=== PATIENT | female | born 1965 | race American Indian/Alaskan Native ===

== ENCOUNTER 2019-06-14 07:48 | Day surgery (SDC) | payer BC, OTHER ==
[~2019-06-14 07:48] MED LIST: Lactated Ringers 1,000 ML IV SCH; Sodium Chloride 0.9% 10 ML Syringe FLUSH PRN
[2019-06-14] MEDS ORDERED: Lidocaine 2% 5 ML SDV INJECT ONE (07:49)
[2019-06-14] MEDS ORDERED: fentaNYL 100 MCG/2 ML SDV IV ONE (07:49)
[2019-06-14] MEDS ORDERED: Glycopyrrolate 0.2 MG/ML 5 ML MDV IV ONE (07:49)
[2019-06-14] MEDS ORDERED: Rocuronium 50 MG/5 ML Vial IV ONE (07:49)
[2019-06-14] MEDS ORDERED: Propofol 200 MG/20 ML SDV IV ONE (07:49)
[2019-06-14] MEDS ORDERED: Neostigmine Methylsulfate 10 MG/10 ML MDV IVPUSH ONE (07:49)
[2019-06-14] MEDS ORDERED: Dexamethasone 4 MG/ML 5 ML MDV IVPUSH ONE (07:49)
[2019-06-14] MEDS ORDERED: Midazolam 1 MG/ML 2 ML SDV IV ONE (07:49)
[2019-06-14] MEDS ORDERED: Acetaminophen 1,000 MG/100 ML Infusion Bottle IV ONE (07:49)
[2019-06-14] MEDS ORDERED: Ciprofloxacin in D5W 400 MG in Premix Bag 1 BAG IV ONE ×2 (07:58)
[2019-06-14] MEDS ORDERED: cefOXitin 1 GM in Premix Bag 1 BAG IV ONE (09:00)
[2019-06-14] MEDS ORDERED: Clindamycin in 0.9 % Sod Chlor 900 MG/50 ML BAG IV ONE (09:00)
[2019-06-14] MEDS ORDERED: Lidocaine 1% with EPINEPHrine 1:100,000 20 ML MDV INJECT ONE (09:59)
[2019-06-14] MEDS ORDERED: Bupivacaine 0.5% 30 ML SDV INJECT ONE (09:59)
[2019-06-14] MEDS ORDERED: Acetaminophen/HYDROcodone 325-5 MG Tab PO PRN (10:35)
--- NOTE | 2019-06-14 10:37 | PCM.OPNOTE ---
- General Post-Op/Procedure Note Date of Surgery/Procedure: 06/14/19 Operative Procedure(s): lap cholecystectomy Findings: critical view obtained Pre Op Diagnosis: sx gallstones Post-Op Diagnosis: Same Anesthesia Technique: General ET Tube, Local (5 ml 1 % lido with epi 0.5% buvipicaine) Primary Surgeon: Ethan Javed Anesthesia Provider: Jefferson Alvarenga Pathology: gallbladder Complications: None Condition: Good Free Text/Narrative:: see dictation
--- NOTE | 2019-06-18 12:38 | OR ---
DATE OF OPERATION: 06/18/2019 SURGEON: Ethan Javed MD PROCEDURE PERFORMED: Laparoscopic cholecystectomy. PREOPERATIVE DIAGNOSIS: Gallstones. POSTOPERATIVE DIAGNOSIS: Gallstones. INDICATIONS FOR PROCEDURE: This is a 54-year-old female who is also a diabetic. She has been having some issues with upper abdominal pain, especially on the right. Subsequent workup demonstrated cholelithiasis. She was offered and accepted a laparoscopic cholecystectomy. INTRAOPERATIVE FINDINGS: Critical view was obtained. A total of 5 mL of 1:1 mixture of 1% lidocaine and 0.5% bupivacaine was used during her procedure. DESCRIPTION OF OPERATION: After an excellent general anesthetic was administered via endotracheal tube, the patient was prepped and draped in the usual sterile manner. Our attention was turned to the patient's upper abdomen. She has had multiple lower abdominal surgeries including mesh repair of a ventral hernia. There was a scar on her upper abdominal wall in the area of a previously placed chest tube from a coronary artery bypass graft. This area was numbed up and incision was made through the previous scar. Dissection was carried out exposing the underlying fascia. Two stay sutures were placed on either side of the midline. More local was injected onto the fascia. An incision was made through the fascia and the abdominal cavity was entered. After digital palpation to ensure no adhesions, a 10.5-mm Daniela trocar was inserted. The patient's abdomen was then insufflated to 15 mmHg pressure using carbon dioxide. Under direct visualization, three 5 mm ports were placed, two below the right costal margin at approximate level of the midclavicular and anterior axillary line, and one in the lower abdomen in the midline just above some adhesions from her previous surgery. This was done by full-thickness infiltration of the abdominal wall, making stab incisions with a #15 scalpel blade and inserting our trocars. The patient was then placed in reverse Trendelenburg with an airplane to the left. The gallbladder was grasped. The infundibulum was grasped. The cystic duct and cystic artery dissected free using blunt dissection. Two clips were placed proximally on the cystic duct and one distally. The cystic duct was then transected. There was a small arterial branch that also had 2 small clips applied. This was roughly 1 mm in size, and then the main cystic artery was clipped. Hook cautery dissection was then used and then divided. The L hook cautery dissection was used to dissect the gallbladder free from the surrounding structure. Specimen was passed to the specimen bag and delivered out through the epigastric port. The area was irrigated and after ensuring excellent hemostasis, our trocars were removed. The 10 mm port was closed with a [id number] 0 Vicryl, subcu 4-0 Vicryl was used to approximate the skin. Steri-Strips were applied. Needle, sponge, and instrument counts were reported as correct. The patient was taken to recovery in good condition. /[id number] /MODL
== END 2019-06-14 12:42 | disposition home or self-care (01) ==
LOC: FB.SDS 07:48
PROVIDERS: ATTEND Surgery
DX: K80.10 Calculus of gallbladder with chronic cholecystitis without obstruction (principal); I25.10 Atherosclerotic heart disease of native coronary artery without angina pectoris; I10 Essential (primary) hypertension; E11.51 Type 2 diabetes mellitus with diabetic peripheral angiopathy without gangrene; E78.00 Pure hypercholesterolemia, unspecified; K21.9 Gastro-esophageal reflux disease without esophagitis; F32.9 Major depressive disorder, single episode, unspecified; Z88.1 Allergy status to other antibiotic agents; Z88.0 Allergy status to penicillin; Z88.5 Allergy status to narcotic agent; Z91.018 Allergy to other foods; Z95.1 Presence of aortocoronary bypass graft; Z87.891 Personal history of nicotine dependence; Z79.4 Long term (current) use of insulin; Z79.899 Other long term (current) drug therapy
CPT/HCPCS: 47562; 82962; 88304; 94150; A9270; J0131; J0744; J1100; J2001; J2250; J2704; J2710; J3010; J3490; J7120

== ENCOUNTER 2019-06-18 20:59 | Observation (INO) | payer BC, OTHER ==
[2019-06-18] MEDS ORDERED: Sodium Chloride 0.9% 1,000 ML IV SCH ×2 (21:30→22:30)
[2019-06-18] MEDS ORDERED: Ondansetron 4 MG/2 ML SDV IVPUSH ONE (22:15)
[2019-06-18] MEDS ORDERED: Acetaminophen 325 MG Tab PO ONE (22:16)
[2019-06-18] MEDS ORDERED: Metoprolol Tartrate 50 MG Tab PO ONE (23:10)
--- NOTE | 2019-06-18 23:45 | EDM.PDOC ---
ED HPI GENERAL MEDICAL PROBLEM - General Chief Complaint: Abdominal Pain Stated Complaint: PAIN IN STOMACH FEEL LIKE PASS OUT Time Seen by Provider: 06/18/19 21:35 Source of Information: Reports: Patient, Old Records, Provider History Limitations: Reports: No Limitations - History of Present Illness INITIAL COMMENTS - FREE TEXT/NARRATIVE: patient is a 54-year-old female who is postop day 4 laparoscopic cholecystectomy done by Dr. Javed who presents tonight with concern for feeling unwell and like she is going to pass out when she stands up. She reports that surgery was overall uneventful. her reports that she ate good the day after surgery. She reports that since Tuesday she started to have some increasing abdominal pain, and her belly felt distended. She reports that yesterday she had some increased nausea, she is having some pain down in the right lower quadrant which seems to be much worse. Today at 4:00 when she went to stand up she felt like she was going to black out and in fact did black out twice that she recalls. She did not hit the floor or hit her head on the floor. She does not otherwise have any sweats, except for when she felt syncopal. She has not vomited, she is passing gas and has had normal bowel movement the past day or 2. She reports history of abdominal pain around her mesh which was placed in 2008. She reports the most pain right now is in the right lower part of her abdomen where the meshes. She is quite concerned that the mesh might be infected. She denies any cough, shortness of breath, chest pain, fever, numbness or tingling in her hands or feet. She denies a headache or blurry vision abdominal Pain Score (Numeric/FACES): 8 - Related Data Allergies Allergy/AdvReac Type Severity Reaction Status Date / Time amoxicillin Allergy Rash Verified 06/18/19 23:47 cephalexin [From Keflex] Allergy Rash Verified 06/18/19 23:47 gluten Allergy Abdominal Verified 06/18/19 23:47 Pain hydromorphone [From Dilaudid] Allergy Hives Verified 06/18/19 23:47 ketorolac [From Toradol] Allergy Other Verified 06/18/19 23:47 Home Meds: Home Meds FLUoxetine [PROzac] 40 mg PO DAILY 06/13/19 [History] Insulin Aspart [NovoLOG] 25 - 27 unit SQ TIDMEALS 06/13/19 [History] Insulin Glarg,Human.Rec.Analog [Lantus Solostar] 98 unit SUBCUT BID 06/13/19 [ History] Losartan [Cozaar] 50 mg PO DAILY 06/13/19 [History] Metoprolol Tartrate [Lopressor] 50 mg PO DAILY 06/13/19 [History] Multivitamin with Minerals [Multiple Vitamin] 1 tab PO DAILY 06/13/19 [History] Ondansetron HCl [Ondansetron] 4 mg PO Q4H PRN 06/13/19 [History] Pantoprazole [ProTONIX] 40 mg PO BIDMEALS 06/13/19 [History] Rosuvastatin [Crestor] 20 mg PO DAILY 06/13/19 [History] metFORMIN [Glucophage] 1,000 mg PO BIDMEALS 06/13/19 [History] traZODone 100 mg PO BEDTIME 06/13/19 [History] Celecoxib [CeleBREX] 200 mg PO BID #10 cap 06/14/19 [Rx] Past Medical History HEENT History: Reports: Impaired Vision Cardiovascular History: Reports: CAD, Heart Failure (per patient report), High Cholesterol, Hypertension Gastrointestinal History: Reports: Celiac Disease, GERD 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: Endometriosis, Other DIVIDER OPERATOR History: Cervicalgia Musculoskeletal History: Psychiatric History: Reports: Depression Endocrine/Metabolic History: Reports: Diabetes, Type II, Obesity/BMI 30+ Hematologic History: Reports: Anemia Immunologic History: Reports: None Oncologic (Cancer) History: Reports: None Dermatologic History: Reports: None - Infectious Disease History Infectious Disease History: Reports: MRSA - Past Surgical History Head Surgeries/Procedures: Reports: None Cardiovascular Surgical History: Reports: Coronary Artery Bypass GI Surgical History: Reports: Appendectomy, Colonoscopy, EGD, Hernia Repair/ Other Female Surgical History: Reports: Breast Biopsy, Section, Hysterectomy Musculoskeletal Surgical History: Reports: Carpal Tunnel Social & Family History - Family History Cardiac: Denies: Blood Clots/VTE/DVT - Caffeine Use Caffeine Use: Reports: Soda ED ROS GENERAL - Review of Systems Review Of Systems: See Below Constitutional: Reports: Malaise, Weakness, Fatigue, Decreased Appetite. Denies : Fever, Diaphoresis HEENT: Reports: No Symptoms Respiratory: Denies: Shortness of Breath, Wheezing, Pleuritic Chest Pain Cardiovascular: Reports: Blood Pressure Problem, Lightheadedness. Denies: Chest Pain, Palpitations Endocrine: Denies: Polydypsia, Polyuria GI/Abdominal: Reports: Abdominal Pain, Anorexia, Decreased Appetite, Nausea, Vomiting. Denies: Black Stool, Bloody Stool : Denies: Dysuria, Frequency, Urgency Musculoskeletal: Reports: No Symptoms Skin: Reports: Wound (from surgery ) Neurological: Reports: Dizziness. Denies: Confusion, Headache, Numbness, Tingling, Weakness Psychiatric: Reports: No Symptoms Hematologic/Lymphatic: Denies: Easy Bleeding, Easy Bruising Immunologic: Reports: No Symptoms ED EXAM, GENERAL - Physical Exam Exam: See Below Free Text/Narrative:: General: alert, non-toxic. Head atraumatic. Pupils reactive. Throat moist. Neck supple. Lungs clear throughout, no wheezes or crackles, good air movement. Heart regular, I do not hear a murmur. Peripheral pulses palpable and there is no lower extremity edema or leg swelling abdomen- normoactive bowel sounds, soft, not distended. Surgical [place] intact and no redness around incision. Diffusely tender with no rebound or guarding. Not really consistently tender anywhere focal on exam, but continually c/o RLQ pain. Course - Vital Signs Text/Narrative:: labs ordered, IVF. Vitals stable here but c/o orthostasis. Abdominal exam benign. Reports to have history of heart failure. Last Recorded V/S: Last Vital Signs Temp 36.6 C 06/18/19 23:45 Pulse 68 06/19/19 00:10 Resp 18 06/18/19 23:45 BP 111/64 06/19/19 00:10 Pulse Ox 99 06/18/19 23:50 - Orders/Labs/Meds Orders: Active Orders 24 hr Category Date Time Status Blood Glucose Check, Bedside [RC] ONETIME Care 06/18/19 21:20 Active Sodium Chloride 0.9% [Normal Saline] 1,000 ml Med 06/18/19 21:30 Active IV ASDIRECTED Sodium Chloride 0.9% [Normal Saline] 1,000 ml Med 06/18/19 22:30 Active IV ASDIRECTED Medication Orders Sodium Chloride (Normal Saline) 1,000 mls @ 0.01 mls/hr IV ASDIRECTED MEGGAN Last Admin: 06/18/19 21:35 Dose: 999 mls/hr Sodium Chloride (Normal Saline) 1,000 mls @ 75 mls/hr IV ASDIRECTED [facility] Last Infusion: 06/19/19 00:00 Dose: 75 mls/hr Admin: 06/18/19 22:35 Dose: 150 mls/hr Insulin Glargine (Lantus Solostar) 85 units SUBCUT BID MEGGAN Last Admin: 06/19/19 00:15 Dose: 85 unit Trazodone HCl (Trazodone) 100 mg PO BEDTIME MEGGAN Last Admin: 06/19/19 00:45 Dose: 100 mg Labs: Laboratory Tests 06/18/19 06/18/19 06/18/19 Range/Units 21:25 21:25 21:25 WBC 15.3 H (4.5-12.0) X10-3/uL RBC 4.79 (3.23-5.20) x10(6)uL Hgb 13.0 (11.5-15.5) g/dL Hct 39.2 (30.0-51.3) % MCV 81.8 (80-96) fL MCH 27.1 L (27.7-33.6) pg MCHC 33.1 (32.2-35.4) g/dL RDW 14.8 (11.5-15.5) % Plt Count 383 H (125-369) X10(3)uL MPV 8.3 (7.4-10.4) fL Add Manual Diff Yes Neutrophils % (Manual) 64 (46-82) % Lymphocytes % (Manual) 23 (13-37) % Monocytes % (Manual) 8 (4-12) % Eosinophils % (Manual) 5 (0-5) % POC VBG pH (7.31-7.41) POC VBG pCO2 (41-51) mmHG POC VBG HCO3 (23-28) mmol/L POC VBG Total CO2 (24-29) mmol/L POC VBG Base Excess (-2-3) mmol/L Sodium 133 L (135-145) mmol/L Potassium 3.6 (3.5-5.3) mmol/L Chloride 96 L (100-110) mmol/L Carbon Dioxide 21 (21-32) mmol/L BUN 28 H (7-18) mg/dL Creatinine 1.2 H (0.55-1.02) mg/dL Est Cr Clr Drug Dosing TNP Estimated GFR (MDRD) 47 L (>60) BUN/Creatinine Ratio 23.3 H (9-20) Glucose 308 H (80-116) mg/dL Lactic Acid 2.4 H (0.4-2.2) mmol/L Calcium 9.3 (8.6-10.2) mg/dL Total Bilirubin 0.5 (0.1-1.3) mg/dL AST 19 (5-25) IU/L ALT 40 H (12-36) U/L Alkaline Phosphatase 109 (56-112) IU/L Total Protein 7.9 (6.0-8.0) g/dL Albumin 3.6 (3.5-5.2) g/dL Globulin 4.3 g/dL Albumin/Globulin Ratio 0.8 Amylase 30 (25-115) U/L 06/18/19 Range/Units 21:33 WBC (4.5-12.0) X10-3/uL RBC (3.23-5.20) x10(6)uL Hgb (11.5-15.5) g/dL Hct (30.0-51.3) % MCV (80-96) fL MCH (27.7-33.6) pg MCHC (32.2-35.4) g/dL RDW (11.5-15.5) % Plt Count (125-369) X10(3)uL MPV (7.4-10.4) fL Add Manual Diff Neutrophils % (Manual) (46-82) % Lymphocytes % (Manual) (13-37) % Monocytes % (Manual) (4-12) % Eosinophils % (Manual) (0-5) % POC VBG pH 7.39 (7.31-7.41) POC VBG pCO2 34.1 L (41-51) mmHG POC VBG HCO3 20.9 L (23-28) mmol/L POC VBG Total CO2 22 L (24-29) mmol/L POC VBG Base Excess -4 L (-2-3) mmol/L Sodium (135-145) mmol/L Potassium (3.5-5.3) mmol/L Chloride (100-110) mmol/L Carbon Dioxide (21-32) mmol/L BUN (7-18) mg/dL Creatinine (0.55-1.02) mg/dL Est Cr Clr Drug Dosing Estimated GFR (MDRD) (>60) BUN/Creatinine Ratio (9-20) Glucose (80-116) mg/dL Lactic Acid (0.4-2.2) mmol/L Calcium (8.6-10.2) mg/dL Total Bilirubin (0.1-1.3) mg/dL AST (5-25) IU/L ALT (12-36) U/L Alkaline Phosphatase (56-112) IU/L Total Protein (6.0-8.0) g/dL Albumin (3.5-5.2) g/dL Globulin g/dL Albumin/Globulin Ratio Amylase (25-115) U/L Meds: Medications Generic Name Dose Route Start Last Admin Trade Name Freq PRN Reason Stop Dose Admin Sodium Chloride 1,000 mls @ 0.01 mls/hr 06/18/19 21:30 06/18/19 21:35 Normal Saline IV 999 mls/hr ASDIRECTED MEGGAN Administration Sodium Chloride 1,000 mls @ 75 mls/hr 06/18/19 22:30 06/19/19 00:00 Normal Saline IV 75 mls/hr ASDIRECTED MEGGAN Infusion Insulin Glargine 85 units 06/18/19 23:45 06/19/19 00:15 Lantus Solostar SUBCUT 85 unit BID MEGGAN Administration Trazodone HCl 100 mg 06/19/19 00:45 06/19/19 00:45 Trazodone PO 100 mg BEDTIME MEGGAN Administration Discontinued Medications Generic Name Dose Route Start Last Admin Trade Name Nateq PRN Reason Stop Dose Admin Acetaminophen 650 mg 06/18/19 22:16 06/18/19 22:25 Tylenol PO 06/18/19 22:17 650 mg NOW ONE Administration Metoprolol Tartrate 50 mg 06/18/19 23:10 06/19/19 00:10 Lopressor PO 06/18/19 23:11 50 mg ONETIME ONE Administration Ondansetron HCl 4 mg 06/18/19 22:15 06/18/19 22:25 Zofran IVPUSH 06/18/19 22:16 4 mg ONETIME ONE Administration Oxycodone HCl 5 mg 06/18/19 23:56 06/19/19 00:11 Oxycodone PO 06/18/19 23:57 5 mg ONETIME ONE Administration Trazodone HCl 100 mg 06/18/19 23:57 06/19/19 00:12 Trazodone PO Not Given BEDTIME MEGGAN Trazodone HCl Confirm 06/19/19 00:09 06/19/19 00:13 Trazodone Administered 06/19/19 00:10 Not Given Dose 100 mg .ROUTE .STK-MED ONE Trazodone HCl 100 mg 06/19/19 00:11 Trazodone PO 06/19/19 00:12 ONETIME ONE - Re-Assessments/Exams Free Text/Narrative Re-Assessment/Exam: 06/19/19 labs reviewed - WBC 15, lactic acid 2.6. Bun slightly elevated at 28 and creatinine 1.2 and slightly hyponatremic at 133, most likely hypovolemic by history given low fluid intake. VBG --not acidotic. patient feeling better after some IVF, zofran and tylenol. discussed case with Dr. Javed, who recommended overnight obs and he will see her in the AM. Patient is also in agreement with this plan. basic admission orders placed repeat lactic acid at 3 hr fabian -- normalized given IVF 1L NS in ED and then 75ml overnight, did not want to overload given history of CHF and patient feeling better metoprolol and trazadone ordered (evening medications) and basal insulin, decreased by 15% from usual given lower PO today CBC and BMP ordered for AM oxycodone PRN for pain (one dose ordered) Dr Javed to see in AM Departure - Departure Time of Disposition: 23:35 Disposition: Admitted As Inpatient 65 Condition: Good Clinical Impression: Abdominal pain, S/P cholecystectomy, Dehydration - Discharge Information *PRESCRIPTION DRUG MONITORING PROGRAM REVIEWED*: Not Applicable *COPY OF PRESCRIPTION DRUG MONITORING REPORT IN PATIENT SUDHA: Not Applicable - My Orders Last 24 Hours: My Active Orders 06/18/19 21:20 Blood Glucose Check, Bedside [RC] ONETIME 06/18/19 21:30 Sodium Chloride 0.9% [Normal Saline] 1,000 ml IV ASDIRECTED 06/18/19 22:30 Sodium Chloride 0.9% [Normal Saline] 1,000 ml IV ASDIRECTED - Assessment/Plan Last 24 Hours: My Active Orders 09/16/19 21:20 Blood Glucose Check, Bedside [RC] ONETIME 06/18/19 21:30 Sodium Chloride 0.9% [Normal Saline] 1,000 ml IV ASDIRECTED 06/18/19 22:30 Sodium Chloride 0.9% [Normal Saline] 1,000 ml IV ASDIRECTED
[2019-06-18] MEDS ORDERED: oxyCODONE 5 MG Tab PO ONE (23:56)
[2019-06-18] MEDS ORDERED: traZODone 100 MG Tab PO SCH (23:57)
[2019-06-19] MEDS ORDERED: traZODone 50 MG Tab ONE (00:09)
[2019-06-19] MEDS ORDERED: traZODone 50 MG Tab PO ONE (00:11)
[2019-06-19] MEDS: Insulin Glargine,Human Rec. Analog 100 Units/ML 3 ML Pen SUBCUT SCH ×2 (00:15→09:27)
[2019-06-19] MEDS ORDERED: traZODone 50 MG Tab PO SCH (00:45)
[2019-06-19] MEDS: Acetaminophen 325 MG Tab PO PRN ×2 (06:23→12:40)
[2019-06-19] MEDS ORDERED: Ondansetron 4 MG/2 ML SDV IVPUSH PRN (07:52)
[2019-06-19] MEDS ORDERED: Acetaminophen/HYDROcodone 325-5 MG Tab PO PRN (07:58)
--- NOTE | 2019-06-19 08:03 | PCM.HP.2 ---
H&P History of Present Illness - General Date of Service: 06/19/19 Admit Problem/Dx: Admission Diagnosis/Problem Admission Diagnosis/Problem Dehydration - History of Present Illness Initial Comments - Free Text/Narative: Pt admitted last pm with dehydration. Has had gi upset and been reluctant to take any po. demargination on her wbc. issues are lower abd pain a chronic condition as well as the epigastric issues as well. abdominal Pain Score (Numeric/FACES): 8 - Related Data Allergies/Adverse Reactions: Allergies Allergy/AdvReac Type Severity Reaction Status Date / Time amoxicillin Allergy Rash Verified 06/18/19 23:47 cephalexin [From Keflex] Allergy Rash Verified 06/18/19 23:47 gluten Allergy Abdominal Verified 06/18/19 23:47 Pain hydromorphone [From Dilaudid] Allergy Hives Verified 06/18/19 23:47 ketorolac [From Toradol] Allergy Other Verified 06/18/19 23:47 Home Medications: Home Meds FLUoxetine [PROzac] 40 mg PO DAILY 06/13/19 [History] Insulin Aspart [NovoLOG] 25 - 27 unit SQ TIDMEALS 06/13/19 [History] Insulin Glarg,Human.Rec.Analog [Lantus Solostar] 98 unit SUBCUT BID 06/13/19 [ History] Losartan [Cozaar] 50 mg PO DAILY 06/13/19 [History] Metoprolol Tartrate [Lopressor] 50 mg PO DAILY 06/13/19 [History] Multivitamin with Minerals [Multiple Vitamin] 1 tab PO DAILY 06/13/19 [History] Ondansetron HCl [Ondansetron] 4 mg PO Q4H PRN 06/13/19 [History] Pantoprazole [ProTONIX] 40 mg PO BIDMEALS 06/13/19 [History] Rosuvastatin [Crestor] 20 mg PO DAILY 06/13/19 [History] metFORMIN [Glucophage] 1,000 mg PO BIDMEALS 06/13/19 [History] traZODone 100 mg PO BEDTIME 06/13/19 [History] Celecoxib [CeleBREX] 200 mg PO BID #10 cap 06/14/19 [Rx] Past Medical History HEENT History: Reports: Impaired Vision Cardiovascular History: Reports: CAD, Heart Failure (per patient report), High Cholesterol, Hypertension Gastrointestinal History: Reports: Celiac Disease, [employer] History: Reports: Endometriosis, Other OB/BYN History: Cervicalgia Musculoskeletal History: Psychiatric History: Reports: Depression Endocrine/Metabolic History: Reports: Diabetes, Type II, Obesity/BMI 30+ Hematologic History: Reports: Anemia Immunologic History: Reports: None Oncologic (Cancer) History: Reports: None Dermatologic History: Reports: None - Infectious Disease History Infectious Disease History: Reports: MRSA - Past Surgical History Head Surgeries/Procedures: Reports: None Cardiovascular Surgical History: Reports: Coronary Artery Bypass GI Surgical History: Reports: Appendectomy, Colonoscopy, EGD, Hernia Repair/ Other Female Surgical History: Reports: Breast Biopsy, Section, Hysterectomy Musculoskeletal Surgical History: Reports: Carpal Tunnel Social & Family History - Family History Cardiac: Denies: Blood Clots/VTE/DVT - Tobacco Use Smoking Status *Q: Former Smoker Used Tobacco, but Quit: Yes Month/Year Tobacco Last Used: 04/2019 - Caffeine Use Caffeine Use: Reports: Soda - Recreational Drug Use Recreational Drug Use: No H&P Review of Systems - Review of Systems: Review Of Systems: See Below Pulmonary: Reports: No Symptoms Cardiovascular: Reports: No Symptoms Gastrointestinal: Reports: Abdominal Pain, Nausea Exam - Exam Exam: See Below - Vital Signs Vital Signs: Last Vital Signs Temp 98 F 06/18/19 23:45 Pulse 61 06/19/19 06:00 Resp 18 06/19/19 06:00 BP 154/74 H 06/19/19 06:00 Pulse Ox 98 06/19/19 06:00 Weight: 68.765 kg - Exam General: Alert, Oriented Lungs: Clear to Auscultation, Normal Respiratory Effort Cardiovascular: Regular Rate, Regular Rhythm GI/Abdominal Exam: Normal Bowel Sounds, Soft, Non-Tender - Patient Data Lab Results Last 24 hrs: Laboratory Results - last 24 hr 06/18/19 06/18/19 06/18/19 Range/Units 21:25 21:25 21:25 WBC 15.3 H (4.5-12.0) X10-3/uL RBC 4.79 (3.23-5.20) x10(6)uL Hgb 13.0 (11.5-15.5) g/dL Hct 39.2 (30.0-51.3) % MCV 81.8 (80-96) fL MCH 27.1 L (27.7-33.6) pg MCHC 33.1 (32.2-35.4) g/dL RDW 14.8 (11.5-15.5) % Plt Count 383 H (125-369) X10(3)uL MPV 8.3 (7.4-10.4) fL Neut % (Auto) (46-82) % Lymph % (Auto) (13-37) % [place] % (Auto) (4-12) % Eos % (Auto) (1.0-5.0) % Baso % (Auto) (0-2) % Neut # (Auto) (1.6-8.3) # Lymph # (Auto) (0.6-5.0) # [place] # (Auto) (0.0-1.3) # Eos # (Auto) (0.0-0.8) # Baso # (Auto) (0.0-0.2) # Add Manual Diff Yes Neutrophils % (Manual) 64 (46-82) % Lymphocytes % (Manual) 23 (13-37) % Monocytes % (Manual) 8 (4-12) % Eosinophils % (Manual) 5 (0-5) % POC VBG pH (7.31-7.41) POC VBG pCO2 (41-51) mmHG POC VBG HCO3 (23-28) mmol/L POC VBG Total CO2 (24-29) mmol/L POC VBG Base Excess (-2-3) mmol/L Sodium 133 L (135-145) mmol/L Potassium 3.6 (3.5-5.3) mmol/L Chloride 96 L (100-110) mmol/L Carbon Dioxide 21 (21-32) mmol/L BUN 28 H (7-18) mg/dL Creatinine 1.2 H (0.55-1.02) mg/dL Est Cr Clr Drug Dosing TNP Estimated GFR (MDRD) 47 L (>60) BUN/Creatinine Ratio 23.3 H (9-20) Glucose 308 H (80-116) mg/dL Lactic Acid 2.4 H (0.4-2.2) mmol/L Calcium 9.3 (8.6-10.2) mg/dL Total Bilirubin 0.5 (0.1-1.3) mg/dL AST 19 (5-25) IU/L ALT 40 H (12-36) U/L Alkaline Phosphatase 109 (56-112) IU/L Total Protein 7.9 (6.0-8.0) g/dL Albumin 3.6 (3.5-5.2) g/dL Globulin 4.3 g/dL Albumin/Globulin Ratio 0.8 Amylase 30 (25-115) U/L 06/18/19 06/19/19 06/19/19 Range/Units 21:33 00:45 06:20 WBC 13.7 H (4.5-12.0) X10-3/uL RBC 4.54 (3.23-5.20) x10(6)uL Hgb 12.2 (11.5-15.5) g/dL Hct 37.4 (30.0-51.3) % MCV 82.4 (80-96) fL MCH 26.9 L (27.7-33.6) pg MCHC 32.7 (32.2-35.4) g/dL RDW 14.9 (11.5-15.5) % Plt Count 348 (125-369) X10(3)uL MPV 8.2 (7.4-10.4) fL Neut % (Auto) 57.8 (46-82) % Lymph % (Auto) 28.0 (13-37) % [place] % (Auto) 5.9 (4-12) % Eos % (Auto) 8 H (1.0-5.0) % Baso % (Auto) 0 (0-2) % Neut # (Auto) 7.8 (1.6-8.3) # Lymph # (Auto) 3.8 (0.6-5.0) # [place] # (Auto) 0.8 (0.0-1.3) # Eos # (Auto) 1.1 H (0.0-0.8) # Baso # (Auto) 0.1 (0.0-0.2) # Add Manual Diff Neutrophils % (Manual) (46-82) % Lymphocytes % (Manual) (13-37) % Monocytes % (Manual) (4-12) % Eosinophils % (Manual) (0-5) % POC VBG pH 7.39 (7.31-7.41) POC VBG pCO2 34.1 L (41-51) mmHG POC VBG HCO3 20.9 L (23-28) mmol/L POC VBG Total CO2 22 L (24-29) mmol/L POC VBG Base Excess -4 L (-2-3) mmol/L Sodium (135-145) mmol/L Potassium (3.5-5.3) mmol/L Chloride (100-110) mmol/L Carbon Dioxide (21-32) mmol/L BUN (7-18) mg/dL Creatinine (0.55-1.02) mg/dL Est Cr Clr Drug Dosing Estimated GFR (MDRD) (>60) BUN/Creatinine Ratio (9-20) Glucose (80-116) mg/dL Lactic Acid 1.1 (0.4-2.2) mmol/L Calcium (8.6-10.2) mg/dL Total Bilirubin (0.1-1.3) mg/dL AST (5-25) IU/L ALT (12-36) U/L Alkaline Phosphatase (56-112) IU/L Total Protein (6.0-8.0) g/dL Albumin (3.5-5.2) g/dL Globulin g/dL Albumin/Globulin Ratio Amylase (25-115) U/L 06/19/ Range/Units 06:20 WBC (4.5-12.0) X10-3/uL RBC (3.23-5.20) x10(6)uL Hgb (11.5-15.5) g/dL Hct (30.0-51.3) % MCV (80-96) fL MCH (27.7-33.6) pg MCHC (32.2-35.4) g/dL RDW (11.5-15.5) % Plt Count (125-369) X10(3)uL MPV (7.4-10.4) fL Neut % (Auto) (46-82) % Lymph % (Auto) (13-37) % [place] % (Auto) (4-12) % Eos % (Auto) (1.0-5.0) % Baso % (Auto) (0-2) % Neut # (Auto) (1.6-8.3) # Lymph # (Auto) (0.6-5.0) # [place] # (Auto) (0.0-1.3) # Eos # (Auto) (0.0-0.8) # Baso # (Auto) (0.0-0.2) # Add Manual Diff Neutrophils % (Manual) (46-82) % Lymphocytes % (Manual) (13-37) % Monocytes % (Manual) (4-12) % Eosinophils % (Manual) (0-5) % POC VBG pH (7.31-7.41) POC VBG pCO2 (41-51) mmHG POC VBG HCO3 (23-28) mmol/L POC VBG Total CO2 (24-29) mmol/L POC VBG Base Excess (-2-3) mmol/L Sodium 139 (135-145) mmol/L Potassium 4.0 (3.5-5.3) mmol/L Chloride 104 D (100-110) mmol/L Carbon Dioxide 24 (21-32) mmol/L BUN 21 H (7-18) mg/dL Creatinine 0.9 (0.55-1.02) mg/dL Est Cr Clr Drug Dosing 67.40 Estimated GFR (MDRD) > 60 (>60) BUN/Creatinine Ratio 23.3 H (9-20) Glucose 196 H D (80-116) mg/dL Lactic Acid (0.4-2.2) mmol/L Calcium 8.8 (8.6-10.2) mg/dL Total Bilirubin (0.1-1.3) mg/dL AST (5-25) IU/L ALT (12-36) U/L Alkaline Phosphatase (56-112) IU/L Total Protein (6.0-8.0) g/dL Albumin (3.5-5.2) g/dL Globulin g/dL Albumin/Globulin Ratio Amylase (25-115) U/L Result Diagrams: 06/19/19 06:20 06/19/19 06:20 - Problem List (1) S/P cholecystectomy SNOMED Code(s): 836399465, [id number], 221425101 ICD Code: Z90.49 - ACQUIRED ABSENCE OF OTHER SPECIFIED PARTS OF DIGESTIVE TRACT Status: Acute Current Visit: Yes Problem List Initiated/Reviewed/Updated: Yes Orders Last 24hrs: Active Orders 24 hr Category Date Time Status Patient Status [ADT] Routine ADT 06/18/19 23:08 Active Antiembolic Devices [RC] .Routine Care 06/18/19 23:09 Active Pulse Oximetry [RC] PRN Care 06/18/19 23:08 Active Up ad Tressa [RC] ASDIRECTED Care 06/18/19 23:08 Active VTE/DVT Education [RC] Click to Edit Care 06/18/19 23:09 Active Vital Signs [RC] 00,04,08,12,16,20 Care 06/18/19 23:08 Active Clear Liquid Diet [DIET] Diet 06/19/19 Lunch Ordered Regular Diet [DIET] Diet 06/19/19 Breakfast Active Acetaminophen [Tylenol] Med 06/19/19 06:04 Active 650 mg PO Q4H PRN Acetaminophen/HYDROcodone [[place] 325-5 MG] Med 06/19/19 07:58 Ordered 1 tab PO Q4H PRN Insulin Glarg,Human.Rec.Analog [LantUS Solostar] Med 06/18/19 23:45 Active 85 units SUBCUT BID Ondansetron [Zofran] Med 06/19/19 07:52 Ordered 4 mg IVPUSH Q8H PRN Pantoprazole [ProTONIX IV] Med 06/19/19 09:00 Ordered 40 mg IVPUSH DAILY Sucralfate [Carafate] Med 06/19/19 11:30 Ordered 1 gm PO QIDACANDBED traZODone Med 06/19/19 00:45 Active 100 mg PO BEDTIME DVT/VTE Prophylaxis Reflex [OM.PC] Per Unit Routine Oth 06/18/19 23:08 Ordered Resuscitation Status Routine Resus Stat 06/18/19 23:08 Ordered Medication Orders Acetaminophen (Tylenol) 650 mg PO Q4H PRN PRN Reason: Pain Last Admin: 06/19/19 06:23 Dose: 650 mg Insulin Glargine (Lantus Solostar) 85 units SUBCUT BID MEGGAN Last Admin: 06/19/19 00:15 Dose: 85 unit Ondansetron HCl (Zofran) 4 mg IVPUSH Q8H PRN PRN Reason: Nausea/Vomiting Sucralfate (Carafate) 1 gm PO QIDACANDBED MEGGAN Trazodone HCl (Trazodone) 100 mg PO BEDTIME MEGGAN Last Admin: 09/17/19 00:45 Dose: 100 mg Assessment/Plan Comment:: this pain appears more gastric related. carafate po pain meds unfortunately we will probably not be able to get her out without another rx of hydrocodone.
[2019-06-19] MEDS ORDERED: Pantoprazole 40 MG Vial IVPUSH SCH (09:00)
[2019-06-19] MEDS ORDERED: Sucralfate 1 GM Tab PO SCH (11:30)
--- NOTE | 2019-06-19 13:34 | PCM.SN ---
- Free Text/Narrative Note: Per nursing tolerated dinner and would like to go home. will discharge. rx will be sent through [facility].
== END 2019-06-19 14:05 | disposition home or self-care (01) ==
LOC: FB.ED 20:59 → FB.MS 23:07
PROVIDERS: ADMIT Family Medicine; ATTEND Surgery
DX: E86.0 Dehydration (principal); I25.10 Atherosclerotic heart disease of native coronary artery without angina pectoris; I11.0 Hypertensive heart disease with heart failure; I50.9 Heart failure, unspecified; E78.00 Pure hypercholesterolemia, unspecified; K21.9 Gastro-esophageal reflux disease without esophagitis; F32.9 Major depressive disorder, single episode, unspecified; E11.9 Type 2 diabetes mellitus without complications; Z88.0 Allergy status to penicillin; Z88.1 Allergy status to other antibiotic agents; Z91.018 Allergy to other foods; Z79.899 Other long term (current) drug therapy; Z79.4 Long term (current) use of insulin; Z87.891 Personal history of nicotine dependence; Z90.49 Acquired absence of other specified parts of digestive tract
CPT/HCPCS: 36415; 80048; 80053; 82150; 82803; 82962; 83605; 85025; 96361; 96374; 96375; 96376; 99283; A9270; C9113; G0378; J1815; J2405; J7030